=== PATIENT | male | born 1960 | race Caucasian/White ===

== ENCOUNTER 2017-05-13 18:18 | Emergency (ER) | payer OTHER ==
[~2017-05-13] VITALS: Ht 198.1 cm; Wt 88.6 kg
[2017-05-13] MEDS ORDERED: VYTORIN1 TA1 PO (18:38)
[2017-05-13] MEDS ORDERED: DEXILANT30 MG PO (18:38)
[2017-05-13 20:41] LABS: HEMATOCRIT 41.3 % (39.0-50.0); HEMOGLOBIN 14.2 g/dl (14.0-18.0); IMMATURE GRANULOCYTES 0.3 % (0.0-1.0); MEAN CELL VOLUME 91.2 fL CALC (80.0-100.0); MEAN CORPUSCULAR HGB 31.3 pG CALC (26.0-32.0); MEAN CORPUSCULAR HGB CONC 34.4 g/L CALC (32.0-36.0); NEUT# 8.42 thou/uL (1.82-7.42); RED BLOOD COUNT 4.53 mill/uL (4.70-6.10)
[2017-05-13 21:07] LABS: ALBUMIN 4.2 g/dL (3.2-5.0); ALKALINE PHOSPHATASE 73 u/l (38-126); AMYLASE 38 u/l (30-110); ANION GAP 15 (6-22 (CALC)); BILIRUBIN, TOTAL 0.9 mg/dL (0.0-1.4); BUN 22 mg/dL (9-20); BUN/CREATININE RATIO 20 (12-20 (CALC)); CARBON DIOXIDE 26 mmol/l (22-30); CHLORIDE 103 mmol/l (95-108); CREATININE 1.1 mg/dL (0.7-1.3); GFR > 60 ML/MIN (>=60 (CALC)); GFR FOR AFR.AMER. > 60 ML/MIN (>=60 (CALC)); LIPASE 67 u/l (23-300); SGOT/AST 36 u/l (17-59); SGPT/ALT 34 u/l (21-72); SODIUM 139 mmol/l (137-146); TOTAL PROTEIN 6.7 g/dL (6.3-8.2)
[2017-05-13] MEDS ORDERED: BENADRYL 50MG C50 MG PO (21:10)
[2017-05-13] MEDS ORDERED: MEDDOSEPAK PO (21:10)
[2017-05-13] MEDS ORDERED: PEPCID20 MG PO (21:10)
[2017-05-13 21:30] VITALS: BP 150/81
== END 2017-05-13 21:30 | disposition home or self-care (01) | DRG 923 ==
LOC: ED 18:18
PROVIDERS: Emergency Medicine
DX: T78.1XXA Other adverse food reactions, not elsewhere classified, initial encounter (principal); R06.02 Shortness of breath; R11.0 Nausea; R53.1 Weakness; R61 Generalized hyperhidrosis